=== PATIENT | male | born 1970 | race Caucasian/White ===

== ENCOUNTER → 2020-11-12 | Outpatient (CLI) | payer OTHER ==
--- NOTE | 2020-11-12 13:38 | KCIC ---
EXAMINATION: MRI LEFT KNEE WITHOUT IV CONTRAST CLINICAL HISTORY: Left knee pain following twisting injury while skiing 2 weeks ago, concern for ACL, MCL, and meniscal injury TECHNIQUE: Multiplanar multisequential images obtained through the knee without intravenous contrast. COMPARISON: Left knee radiographs 11/06/2020 FINDINGS: MENISCI: Medial Meniscus: Intact. Lateral Meniscus: Intact. LIGAMENTS: ACL: Intact PCL: Intact MCL: Moderate grade sprain (grade 2) with partial thickness tearing proximally and periligamentous ed chaim superficial and deep to the ligament LCL Complex: Intact CARTILAGE: Medial Femoral Condyle: Normal Medial Tibial Plateau: Normal Lateral Femoral Condyle: Normal Lateral Tibial Plateau: Normal Patella: Normal Trochlea: Normal TENDONS: Distal quadriceps and patellar tendons intact. Popliteus tendon intact. BONES AND MARROW: No evidence of acute fracture or suspicious marrow replacing process. Chronic react kee changes at the ACL tibial attachment. MUSCLES: Muscle bulk and signal intensity within normal limits. JOINT FLUID AND SYNOVIUM: No joint effusion. No synovitis. No Workman's cyst. IMPRESSION: Moderate MCL sprain. No ACL injury or meniscus tear. Electronically signed by: Wilbert Small DO (11/12/2020 1:36 PM) [id number]
== END ==
LOC: KCIC MRI 07:54
PROVIDERS: ATTEND Orthopaedic Surgery
DX: S83.412A Sprain of medial collateral ligament of left knee, initial encounter (principal); X58.XXXA Exposure to other specified factors, initial encounter; Y93.89 Activity, other specified; Y92.89 Other specified places as the place of occurrence of the external cause; Y99.8 Other external cause status
CPT/HCPCS: 73721

== ENCOUNTER → 2021-07-31 | Outpatient (CLI) | payer OTHER ==
--- NOTE | 2021-07-31 13:49 | KCIC ---
Examination: MRI of the left hip without contrast HISTORY: History of chronic left hip pain COMPARISON: None available TECHNIQUE: Multiplanar, multisequence MR imaging of the left hip were performed without contrast FINDINGS: The left femoral head is within the acetabulum. The attachment of the hamstring tendon to the ischial tuberosity, attachment of the gluteal tendons to the greater trochanter, attachment of the iliopsoas tendon to the lesser trochanter and the attachment of the rectus femoris tendon to the anterior infe rior iliac spine grossly appears intact. There is mild increased T2 signal likely low grade muscular tear in the adductor brevis muscle with fluid signal extending between the adductor brevis, pectineus and adductor longus muscles likely edema. Mild increased signal identified in the superior labrum wi th adjacent subchondral cystic changes likely degenerative change. Moderate joint space loss left hip joint likely degenerative changes IMPRESSION: 1. Low-grade muscle tear adductor brevis muscle with mild surrounding edema extending between the add uctor brevis, pectineus and adductor longus muscles. 2. Mild increased signal identified in the superior labrum likely degenerative change or less likely subtle labral tear. Electronically signed by: Eric Salazar MD (07/31/2021 1:47 PM) [id number]
== END ==
LOC: KCIC MRI 08:29
PROVIDERS: ATTEND Family Medicine
DX: S76.212A Strain of adductor muscle, fascia and tendon of left thigh, initial encounter (principal); R60.9 Edema, unspecified; M25.552 Pain in left hip; X58.XXXA Exposure to other specified factors, initial encounter; Y93.89 Activity, other specified; Y92.89 Other specified places as the place of occurrence of the external cause; Y99.8 Other external cause status
CPT/HCPCS: 73721

== ENCOUNTER → 2021-10-20 | Outpatient (CLI) | payer OTHER ==
[~2021-10-20] MED LIST: BUPIVACAINE MPF 0.5% 10 ML VIAL. IJ ONE; CONTRAST GIVEN. MC PRN; IOHEXOL 300 MG/ML 50 ML VIAL. INT ART ONE; LIDOCAINE 1% Multi-Dose 20 ML VIAL. INJ ONE; TRIAMCINOLONE ACETONIDE 40 MG/ML VIAL. INT ART ONE
--- NOTE | 2021-10-20 12:39 | RAD ---
EXAM: Fluoroscopic guided therapeutic left hip injection. HISTORY: Pain. TECHNIQUE: The risks of the procedure were discussed with the patient and written and verbal consent was obtained. A time out was performed. Fluoroscopic imaging of the left hip was performed and a site overlying the joint space was selected for needle entry. The skin overlying this region was sterilel y prepped, draped and infiltrated with 1% lidocaine. A spinal needle was then advanced into the joint space with fluoroscopic guidance. Appropriate needle tip positioning was confirmed with injection of 3 cc Isovue 300 contrast. Subsequently, the requested solution containing 2 cc bupivacaine 0.5 perce nt, 1 cc lidocaine 1 percent, and 40 mg Kenalog was injected into the joint space. The needle was rem estephania and a sterile bandage was placed at the needle entry site. The patient tolerated the procedure w ithout difficulty. The total fluoroscopy time was less than 30 seconds and 2 fluoroscopic images were obtained. IMPRESSION: Fluoroscopic guided therapeutic left hip injection. Electronically signed by: Alis Cornell MD (10/20/2021 12:37 PM) [id number]
== END | disposition home or self-care (01) ==
LOC: RAD 11:21
PROVIDERS: ATTEND Orthopaedic Surgery
DX: M25.552 Pain in left hip (principal)
CPT/HCPCS: 20610; 77002; J3301; J3490; Q9967